=== PATIENT | female | born 1960 | race Caucasian/White ===

== ENCOUNTER 2016-08-20 11:16 | Outpatient (CLI) | payer OTHER | END 2016-08-20 11:17 | disposition home or self-care (01) | DX: M79.662 Pain in left lower leg (principal) ==

== ENCOUNTER 2017-03-21 08:00 | Outpatient (CLI) | payer OTHER ==
[2017-03-23 14:24] LABS: ANA SCREEN NEGATIVE (NEGATIVE)
== END 2017-03-21 08:01 | disposition home or self-care (01) ==
LOC: LAB.R 08:00
PROVIDERS: ATTEND Nurse Practitioner Primary Care
DX: M25.50 Pain in unspecified joint (principal); R53.83 Other fatigue; R22.1 Localized swelling, mass and lump, neck
CPT/HCPCS: 84443; 85651; 86038; 86140; 86200; 86430

== ENCOUNTER 2017-06-22 11:42 | Outpatient (CLI) | payer OTHER ==
[2017-06-22 14:11] LABS: BASOPHILS % (AUTO) 0.5 %; EOSINOPHILS % (AUTO) 0.4 %; LYMPHOCYTES # (AUTO) 1.4 10^3/uL (1.5-3.5); MEAN CORPUSCULAR HEMOGLOBIN 31.1 pg (27.0-31.0); MEAN CORPUSCULAR HGB CONC 34.2 g/dL (32.0-36.0); MEAN PLATELET VOLUME 9.2 fL (7.9-10.8); MONOCYTES # (AUTO) 0.3 10^3/uL (0.0-1.0); MONOCYTES % (AUTO) 3.8 %; NEUTROPHILS # (AUTO) 5.1 10^3/uL (1.5-6.6); NEUTROPHILS % (AUTO) 74.3 %; RED BLOOD COUNT 4.51 10^6/uL (4.20-5.40); RED CELL DISTRIBUTION WIDTH 12.9 % (12.0-15.0); UNCORRECTED WHITE BLOOD COUNT 6.8 x10^3/uL; WHITE BLOOD COUNT 6.8 x10^3/uL (4.8-10.8)
[2017-06-22 14:27] LABS: ALBUMIN/GLOBULIN RATIO 1.4 (1.0-2.2); BILIRUBIN,TOTAL 0.6 mg/dL (0.2-1.0); BUN - BLOOD UREA NITROGEN 21 mg/dL (6-20); CALCIUM 9.7 mg/dL (8.5-10.3); CARBON DIOXIDE - CO2 23 mmol/L (21-32); CHLORIDE 100 mmol/L (101-111); CHOL/HDL RATIO 2.8 (<4.4); CHOLESTEROL 209 mg/dL; CREATININE 0.7 mg/dL (0.4-1.0); GFR - MDRD 87 (>89); GLUCOSE 84 mg/dL (70-100); HDL CHOLESTEROL 74 mg/dL; LDL/HDL RATIO 1.5 (<4.4); POTASSIUM 3.8 mmol/L (3.5-5.0); SODIUM 135 mmol/L (135-145); TOTAL PROTEIN 7.4 g/dL (6.7-8.2); TRIGLYCERIDES 136 mg/dL; VLDL CHOLESTEROL 27 mg/dL
== END 2017-06-22 11:43 | disposition home or self-care (01) ==
LOC: LAB.R 11:42
PROVIDERS: ATTEND Physician Assistant Medical
DX: Z00.00 Encounter for general adult medical examination without abnormal findings (principal); E55.9 Vitamin D deficiency, unspecified; Z79.899 Other long term (current) drug therapy
CPT/HCPCS: 80053; 80061; 82306; 85025

== ENCOUNTER 2017-06-24 12:14 | Outpatient (CLI) | payer OTHER ==
[~2017-06-24 12:14] MED LIST: IOPAMIDOL-300 100 ML VIAL ONE
[2017-06-24] MEDS ORDERED: IOPAMIDOL-300 100 ML VIAL IVP ONE (13:09)
--- NOTE | 2017-06-24 14:10 | CT Report ---
CT OF NECK WITH CONTRAST: 06/24/2017 CLINICAL INDICATION: Neck swelling, pain. TECHNIQUE: Axial CT images of the neck were obtained with 100 mL of Isovue-300 intravenously. Sagitta l and coronal reconstructions were performed. FINDINGS: The vascular structures enhance normally. The tracheal air column is widely patent through out. The salivary glands and thyroid gland are unremarkable. There are small cervical lymph nodes pre sent, which do not reach size criteria for lymphadenopathy. No mucosal lesion is appreciated in the n asopharynx, oropharynx, or hypopharynx. The osseous structures demonstrate degenerative changes. Limi aileen evaluation of the lung apices is unremarkable. The visualized orbital contents and paranasal sinu ses are unremarkable. Specifically, no CT abnormality is appreciated in the right lateral neck and mckeon praclavicular region, in the region of swelling described on the requisition. IMPRESSION: NORMAL CT OF THE NECK WITH CONTRAST. NO EVIDENCE OF MASS, ABSCESS, OR ADENOPATHY. In accordance with CT protocol optimization, one or more of the following dose reduction techniques w ere utilized for this exam: automated exposure control, adjustment of mA and/or KV based on patient size, or use of iterative reconstructive technique. JOB #: [id number] EXT JOB #:
== END 2017-06-24 12:15 | disposition home or self-care (01) ==
LOC: DI 12:14
PROVIDERS: ATTEND Physician Assistant Medical
DX: M54.2 Cervicalgia (principal)
CPT/HCPCS: 70491; Q9967

== ENCOUNTER 2017-07-06 13:57 | Outpatient (CLI) | payer OTHER ==
--- NOTE | 2017-07-07 20:05 | Mammography Report ---
DIGITAL SCREENING MAMMOGRAM: 07/06/2017 CLINICAL INDICATION: A 57-year-old nulliparous patient for screening. COMPARISON: 01/2015, 01/2014, 09/2012, 09/2011, 09/2010. TECHNIQUE: Routine CC and MLO projections were obtained of the breasts. FINDINGS: Scattered fibroglandular tissue is present within the breasts. There are no dominant mass es, suspicious microcalcifications, or secondary signs of malignancy. In comparison to the previous studies, there are no significant changes. ASSESSMENT: NO MAMMOGRAPHIC EVIDENCE OF MALIGNANCY. NO SIGNIFICANT INTERVAL CHANGES. RECOMMENDATION: Screening mammography is recommended annually. BIRADS category 1 - negative. STANDARD QUALIFYING STATEMENTS 1. This examination was reviewed with the aid of Computed-Aided Detection (CAD). 2. A negative or benign imaging report should not delay biopsy if clinically suspicious findings are present. Consider surgical consultation if warranted. More than 5% of cancers are not identified b y imaging. 3. Dense breasts may obscure an underlying neoplasm. JOB #: [id number] EXT JOB #:[id number]
== END 2017-07-06 13:58 | disposition home or self-care (01) ==
LOC: DI 13:57
PROVIDERS: ATTEND Physician Assistant Medical
DX: Z12.31 Encounter for screening mammogram for malignant neoplasm of breast (principal)
CPT/HCPCS: 77067

== ENCOUNTER 2017-08-11 13:18 | Outpatient (CLI) | payer OTHER ==
--- NOTE | 2017-08-11 14:53 | MRI Report ---
EXAM: MRI BRAIN WITHOUT CONTRAST EXAM DATE: 08/11/2017 02:13 PM. CLINICAL HISTORY: NEW DAILY PERSISTENT HEADACHE (NDPH). COMPARISON: CT head 09/11/2014 TECHNIQUE: Multiplanar, multisequence T1-weighted and fluid-sensitive MR sequences of the brain were performed. Sequences optimized for routine evaluation. Other: None. IV Contrast: None. FINDINGS: Brain Volume: Normal for age. Parenchyma/Dura: No mass, acute infarct or hemorrhage. Few scattered T2/FLAIR hyperintense periventri cular and deep white matter lesions within cerebral hemispheres bilaterally. No parenchymal microhemo rrhages. Ventricles/Cisterns: No hydrocephalus. No abnormal extra-axial fluid collection or hemorrhage. Orbits: Symmetric and unremarkable. Sella Turcica: The pituitary gland, cavernous sinuses, suprasellar cistern and optic chiasm are unrem arkable. IAC: Symmetric and unremarkable. Vasculature: Normal signal flow void is seen in the major arterial structures at the skull base. Sinuses: No acute appearing sinus disease. Bones: No focal pathologic appearing marrow signal changes. Other: None. IMPRESSION: 1. No MRI evidence of acute intracranial abnormality. Specifically, no evidence of acute or subacute infarct, acute intracranial hemorrhage, mass, midline shift, or hydrocephalus. 2. Few scattered periventricular and deep white matter T2/FLAIR hyperintensities, nonspecific, and ca n be seen with the entire gamut of white matter conditions, including migraine headaches and as seque la of chronic microangiopathy. [facility] Referring Provider Line: [phone] SITE ID: [id number]
== END 2017-08-11 13:19 | disposition home or self-care (01) ==
LOC: DI 13:18
PROVIDERS: ATTEND Specialist
DX: G44.52 New daily persistent headache (NDPH) (principal)
CPT/HCPCS: 70551

== ENCOUNTER 2018-07-08 08:53 | Outpatient (CLI) | payer OTHER ==
[2018-07-08 09:33] LABS: BASOPHILS % (AUTO) 0.7 %; EOSINOPHILS # (AUTO) 0.1 10^3/uL (0.0-0.7); EOSINOPHILS % (AUTO) 1.1 %; HGB - HEMOGLOBIN 13.4 g/dL (12.0-16.0); LYMPHOCYTES # (AUTO) 2.1 10^3/uL (1.5-3.5); LYMPHOCYTES % (AUTO) 38.9 %; MEAN CORPUSCULAR HEMOGLOBIN 31.8 pg (27.0-31.0); MEAN CORPUSCULAR HGB CONC 34.6 g/dL (32.0-36.0); MEAN PLATELET VOLUME 8.9 fL (7.9-10.8); MONOCYTES # (AUTO) 0.4 10^3/uL (0.0-1.0); MONOCYTES % (AUTO) 8.1 %; NEUTROPHILS # (AUTO) 2.8 10^3/uL (1.5-6.6); NEUTROPHILS % (AUTO) 51.2 %; PLT - PLATELET COUNT 237 10^3/uL (130-450); RED BLOOD COUNT 4.23 10^6/uL (4.20-5.40); RED CELL DISTRIBUTION WIDTH 12.4 % (12.0-15.0); WHITE BLOOD COUNT 5.4 x10^3/uL (4.8-10.8)
[2018-07-08 09:41] LABS: ALBUMIN 3.9 g/dL (3.2-5.5); ALBUMIN/GLOBULIN RATIO 1.2 (1.0-2.2); ALKALINE PHOSPHATASE 50 IU/L (42-121); ALT ALANINE AMINOTRANSFERASE 16 IU/L (10-60); AST ASPARTATE AMINOTRANSFERASE 18 IU/L (10-42); BILIRUBIN,TOTAL 0.7 mg/dL (0.2-1.0); BUN - BLOOD UREA NITROGEN 17 mg/dL (6-20); CALCIUM 9.2 mg/dL (8.5-10.3); CARBON DIOXIDE - CO2 27 mmol/L (21-32); CHLORIDE 103 mmol/L (101-111); CHOL/HDL RATIO 3.4 (<4.4); CHOLESTEROL 240 mg/dL; CREATININE 0.8 mg/dL (0.4-1.0); GFR - MDRD 74 (>89); GLUCOSE 96 mg/dL (70-100); HDL CHOLESTEROL 71 mg/dL; LDL CHOLESTEROL,CALCULATED 140 mg/dL; SODIUM 138 mmol/L (135-145); TOTAL PROTEIN 7.2 g/dL (6.7-8.2); VLDL CHOLESTEROL 29 mg/dL
== END 2018-07-08 08:54 | disposition home or self-care (01) ==
LOC: LAB 08:53
PROVIDERS: ATTEND Physician Assistant Medical
DX: Z00.00 Encounter for general adult medical examination without abnormal findings (principal); E55.9 Vitamin D deficiency, unspecified; Z79.899 Other long term (current) drug therapy
CPT/HCPCS: 36415; 80053; 80061; 82306; 83721; 84443; 85025

== ENCOUNTER 2018-09-13 09:40 | Outpatient (CLI) | payer OTHER ==
--- NOTE | 2018-09-13 10:59 | Mammography Report ---
Reason: MAMMOGRAPHIC SCREENING FOR BREAST CANCER Procedure Date: 09/13/2018 Accession Number: [id number] / [id number] Procedure: [facility] - Screening Mammo w/Levon CPT Code: FULL RESULT: EXAM: Screening Mammo w/Levon DATE: 09/13/2018 10:31 AM CLINICAL HISTORY: Routine screening. No reported personal or family history of breast cancer. TECHNIQUE: Bilateral CC and MLO views were obtained. COMPARISON: 07/06/2017 through 09/26/2012 FINDINGS: The breasts demonstrate scattered fibroglandular densities bilaterally. Right breast: There are no suspicious masses, calcifications or areas of distortion. Left breast: The left CC view is technically limited due to insufficient inclusion of posterior tissues. IMPRESSION: Incomplete examination RECOMMENDATION: Technical recall left breast for posterior tissues CC view. BI-RADS CATEGORY 0: Incomplete examination STANDARD QUALIFYING STATEMENTS: 1. This examination was not reviewed with the aid of Computer-Aided Detection (CAD). 2. A negative or benign imaging report should not preclude biopsy if clinically suspicious findings are present. 3. Dense breasts may obscure an underlying neoplasm. 4. This examination was reviewed with the aid of 3D breast imaging (tomosynthesis).
== END 2018-09-13 09:41 | disposition home or self-care (01) ==
LOC: DI 09:40
PROVIDERS: ATTEND Physician Assistant Medical
DX: Z12.31 Encounter for screening mammogram for malignant neoplasm of breast (principal)
CPT/HCPCS: 77063; 77067

== ENCOUNTER 2018-10-17 09:05 | Outpatient (CLI) | payer OTHER | END 2018-10-17 09:06 | disposition home or self-care (01) | LOC: DI 09:05 | PROVIDERS: ATTEND Physician Assistant Medical | DX: Z53.9 Procedure and treatment not carried out, unspecified reason (principal) ==

== ENCOUNTER 2018-11-22 09:57 | Outpatient (CLI) | payer OTHER ==
--- NOTE | 2018-11-22 10:37 | XRAY Report ---
Reason: KNEE PAIN,LEFT Procedure Date: 11/22/2018 Accession Number: [id number] / [id number] Procedure: [facility] - Knee 2 View LT CPT Code: FULL RESULT: EXAM: LEFT FOOT RADIOGRAPHY EXAM DATE: 11/22/2018 10:22 AM. CLINICAL HISTORY: LEFT FOOT PAIN. COMPARISON: KNEE 3 VIEW LT 04/08/2015 11:02 AM. TECHNIQUE: 3 views. FINDINGS: Bones: No acute abnormality. There is a bipartite medial sesamoid of no clinical significance. Partial visualization of the distal portion of tibial fixation hardware Joints: No soft tissue swelling. Soft Tissues: Normal. IMPRESSION: Normal left foot radiography. [facility]
== END 2018-11-22 09:58 | disposition home or self-care (01) ==
LOC: DI.WCP 09:57
PROVIDERS: ATTEND Physician Assistant
DX: M79.675 Pain in left toe(s) (principal)

== ENCOUNTER 2018-11-22 10:01 | Outpatient (CLI) | payer OTHER ==
--- NOTE | 2018-11-22 10:31 | XRAY Report ---
Reason: TOE PAIN,LEFT Procedure Date: 11/22/2018 Accession Number: [id number] / [id number] Procedure: [facility] - Foot 3 View LT CPT Code: FULL RESULT: EXAM: LEFT FOOT RADIOGRAPHY EXAM DATE: 11/22/2018 10:04 AM. CLINICAL HISTORY: TOE Pain, left. COMPARISON: None. TECHNIQUE: 3 views. FINDINGS: Bones: No acute abnormality. Minimal patellofemoral osteoarthritis. Partial visualization of proximal left tibial hardware. Joints: Normal. No subluxations. Soft Tissues: Normal. No soft tissue swelling. IMPRESSION: 1. Minimal patellofemoral osteoarthritis without joint effusion. 2. Otherwise negative examination. No acute osseous abnormality. [facility] ADDENDUM: 11/29/18 09:51 This addendum is to reflect a clerical mismatch between the reporting PACS archive and the permanent PACS archive as maintained at [facility]. At [facility], images corresponding to this report are maintained in PACS under accession #[id number] / [id number]. ADDENDUM: 12/05/18 14:03 EXAM: LEFT FOOT RADIOGRAPHY EXAM DATE: 11/22/2018 10:22 AM. CLINICAL HISTORY: LEFT FOOT PAIN. COMPARISON: KNEE 3 VIEW LT 04/08/2015 11:02 AM. TECHNIQUE: 3 views. FINDINGS: Bones: No acute abnormality. There is a bipartite medial sesamoid of no clinical significance. Partial visualization of the distal portion of tibial fixation hardware Joints: No soft tissue swelling. Soft Tissues: Normal. IMPRESSION: Normal left foot radiography. [facility]
== END 2018-11-22 10:02 | disposition home or self-care (01) ==
LOC: DI.WCP 10:01
PROVIDERS: ATTEND Physician Assistant
DX: M79.675 Pain in left toe(s) (principal); M17.12 Unilateral primary osteoarthritis, left knee; M25.462 Effusion, left knee

== ENCOUNTER 2019-08-18 08:26 | Emergency (ER) | payer OTHER ==
[2019-08-18] MEDS ORDERED: KETOROLAC 30 MG/ML VIAL IVP STA (09:27)
[2019-08-18] MEDS ORDERED: SODIUM CHLORIDE 0.9% 1,000 ML IV ONE (09:27)
[2019-08-18] MEDS ORDERED: DEXAMETHASONE 10 MG/ML VIAL IVP STA (09:28)
--- NOTE | 2019-08-18 09:31 | ED Physician Documentation ---
PD HPI ABD PAIN - Stated complaint Stated Complaint: COLEMAN/ABD PX - Chief complaint Chief Complaint: Abd Pain - History obtained from History obtained from: Patient, Family - History of Present Illness Timing - onset: How many months ago (1) Timing - duration: Months (1) Timing - details: Gradual onset, Still present, Waxing and waning Quality: Sharp, Pain Location: LLQ Radiation: Lower back Improved by: Laying still Worsened by: Position, Palpation Associated symptoms: Constipation, Other (headache). 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 She has persistence of this pain now. She has some issues with constipation chronically she does not feel that she has had any fever or vomiting with this she is not having any urinary symptoms with this. She has not had an investigation of this. She does have some pain in her neck at the base of the neck and a headache associated with this. She is under significant stress as the couple has recently bought a house her has undergone CABG and the patient has a mother with issues as well. Review of Systems Constitutional: denies: Fever, Chills, Myalgias Eyes: denies: Decreased vision Ears: denies: Ear pain Nose: denies: Rhinorrhea / runny nose, Congestion Throat: denies: Sore throat Cardiac: denies: Chest pain / pressure, Palpitations Respiratory: denies: Dyspnea GI: reports: Abdominal Pain, Constipation. denies: Abdominal Swelling, Nausea, Vomiting : denies: Dysuria, Frequency Skin: denies: Abrasion (s) Musculoskeletal: reports: Neck pain. denies: Back pain Neurologic: reports: Headache. 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 - Present Medications Home Medications: Ambulatory Orders Medication Instructions Recorded Confirmed Estrogens, Conjugated [Premarin] 0.625 mg PO DAILY 07/18/13 09/14/14 hydroCHLOROthiazide [Hydrodiuril] 25 mg PO DAILY 07/18/13 09/14/14 Cyclobenzaprine [Flexeril] 10 mg PO TID PRN #20 tablet 08/18/19 Gabapentin 300 mg PO 08/18/19 Hydrocodone/Acetaminophen 1 - 2 each PO Q6H PRN #14 tablet 08/18/19 [Hydrocodon-Acetaminophen 5-325] Multivitamin [Multivitamins] 1 each PO 08/18/19 - Allergies Allergies/Adverse Reactions: Allergies Allergy/AdvReac Type Severity Reaction Status Date / Time No Known Drug Allergies Allergy Verified 08/18/19 08:36 - Social History Does the pt smoke?: No Smoking Status: Never smoker Does the pt drink ETOH?: Yes Does the pt have substance abuse?: No - Immunizations Immunizations are current?: Yes PD ED PE NORMAL - Vitals Vital signs reviewed: Yes (Hypertensive.) - General General: Alert and oriented X 3, Well developed/nourished, Other (Consumer Advocate tone and flattened affect consistent with pain.) - HEENT HEENT: Atraumatic, PERRL, EOMI, Ears normal, Moist mucous membranes, Pharynx benign, Dentition benign - Neck Neck: Supple, no meningeal sign, No bony TTP, Other (There is tenderness along the trapezius at the insertion to the occiput bilaterally worse on the right than the left.) - Cardiac Cardiac: RRR, No murmur - Respiratory Respiratory: No respiratory distress, Clear bilaterally - Abdomen Abdomen: Soft, Other (Mild left lower quadrant tenderness without guarding or rebound tenderness.) - Back Back: No CVA TTP, No spinal TTP - Derm Derm: Normal color, Warm and dry, No rash - Extremities Extremities: No deformity, Normal ROM s pain, No edema, No calf tenderness / cord - Neuro Neuro: Alert and oriented X 3, manager environmental affairs 2-12 intact, No motor deficit, No sensory deficit, Normal speech Eye Opening: Spontaneous Motor: Obeys Commands Verbal: Oriented GCS Score: 15 - Psych Psych: Normal mood Results - Vitals Vitals: Vital Signs - 24 hr 08/18/19 08/18/19 08/18/19 08:32 10:34 11:12 Temperature 36.4 C L Heart Rate 63 58 L 63 Respiratory 16 18 18 Rate Blood Pressure 153/95 H 123/65 129/83 H O2 Saturation 98 94 99 08/18/19 12:18 Temperature Heart Rate 52 L Respiratory 18 Rate Blood Pressure 147/87 H O2 Saturation 95 Oxygen O2 Source Room air - Labs Labs: Laboratory Tests 08/18/19 08/18/19 08/18/19 08:55 09:46 09:46 WBC 4.8 RBC 4.04 L Hgb 12.5 Hct 38.2 MCV 94.6 MCH 30.9 MCHC 32.7 RDW 12.4 Plt Count 240 MPV 10.9 H Neut # (Auto) 3.0 Lymph # (Auto) 1.3 L Swift # (Auto) 0.4 Eos # (Auto) 0.0 Baso # (Auto) 0.0 Absolute Nucleated RBC 0.00 Nucleated RBC % 0.0 Sodium 137 Potassium 3.1 L Chloride 102 Carbon Dioxide 25 Anion Gap 10.0 BUN 17 Creatinine 0.6 Estimated GFR (MDRD) 103 Glucose 90 Calcium 8.9 Total Bilirubin 0.9 AST 18 ALT 16 Alkaline Phosphatase 41 L Total Protein 6.7 Albumin 3.8 Globulin 2.9 Albumin/Globulin Ratio 1.3 Lipase 22 Urine Color YELLOW Urine Clarity CLEAR Urine pH 7.5 Ur Specific [place] 1.015 Urine Protein NEGATIVE Urine Glucose (UA) NEGATIVE Urine Ketones NEGATIVE Urine Occult Blood NEGATIVE Urine Nitrite NEGATIVE Urine Bilirubin NEGATIVE Urine Urobilinogen 0.2 (NORMAL) Ur Leukocyte Esterase NEGATIVE Ur Microscopic Review NOT INDICATED Urine Culture Comments NOT INDICATED - Rads (name of study) CT ab/pel w Radiology: Prelim report reviewed (Impression: 1. No convincing acute abdominal pelvic findings. 2 Other findings as noted above.), EMP read indepedently, See rad report Procedures - IVC sono (time) 0695 Bedside IVC sono: IVC measures (cm) (0.99), IVC collapsed c insp (cm) (complete), Dehydration (est 1+ liter deficit.) PD MEDICAL DECISION MAKING - ED course Complexity details: reviewed old records, reviewed results, re-evaluated patient, considered differential, d/w patient, d/w family ED course: 59-year-old female with left lower quadrant abdominal pain and a headache that appears to be related to greater occipital neuritis with a lot of spasm in the neck muscle is found to be dehydrated on interrogation of the IVC (does not drink much fluids and is on HCTZ). Here in the emergency department we elected to treat the headache with Toradol and dexamethasone as well as saline. The left lower quadrant abdominal pain is investigated with CT scan of the abdomen pelvis with contrast. This is a mostly normal study with the exception of a fair stool burden, and this is shared with the patient. Her headache is improved with IV dilaudid and zofran. Departure - Departure Disposition: 01 Home, Self Care Clinical Impression: Tension headache, Dehydration Constipation Qualifiers: Constipation type: unspecified constipation type Qualified Code(s): K59.00 - Constipation, unspecified Condition: Stable Instructions: ED Constipation, ED Dehydration, ED Headache Tension Follow-Up: Jennifer Zuñiga PA [Primary Care Provider] - Prescriptions: Cyclobenzaprine [Flexeril] 10 mg PO TID PRN #20 tablet PRN Reason: Spasms Hydrocodone/Acetaminophen [Hydrocodon-Acetaminophen 5-325] 1 - 2 each PO Q6H PRN #14 tablet PRN Reason: pain
[2019-08-18] MEDS ORDERED: IOVERSOL 320 100 ML VIAL IVP ONE ×2 (09:41→11:02)
[2019-08-18 09:46] LABS: BILIRUBIN,URINE NEGATIVE (NEGATIVE); GLUCOSE, URINE (UA) NEGATIVE (NEGATIVE); KETONES,URINE (UA) NEGATIVE (NEGATIVE); LEUKOCYTE ESTERASE, URINE NEGATIVE (NEGATIVE); NITRITE,URINE NEGATIVE (NEGATIVE); OCCULT BLOOD,URINE NEGATIVE (NEGATIVE); PH,URINE 7.5 PH (5.0-7.5); PROTEIN,URINE NEGATIVE (NEGATIVE); UROBILINOGEN,URINE 0.2 (NORMAL) E.U./dL (NORMAL)
[2019-08-18 09:56] LABS: CLARITY,URINE CLEAR (CLEAR)
[2019-08-18 10:23] LABS: BASOPHILS % (AUTO) 0.6 %; EOSINOPHILS % (AUTO) 0.6 %; HGB - HEMOGLOBIN 12.5 g/dL (12.0-16.0); LYMPHOCYTES # (AUTO) 1.3 10^3/uL (1.5-3.5); LYMPHOCYTES % (AUTO) 28.1 %; MEAN CORPUSCULAR HEMOGLOBIN 30.9 pg (27.0-31.0); MEAN CORPUSCULAR HGB CONC 32.7 g/dL (32.0-36.0); MEAN CORPUSCULAR VOLUME 94.6 fL (81.0-99.0); MEAN PLATELET VOLUME 10.9 fL (7.9-10.8); MONOCYTES # (AUTO) 0.4 10^3/uL (0.0-1.0); MONOCYTES % (AUTO) 7.5 %; PLT - PLATELET COUNT 240 10^3/uL (130-450); RED BLOOD COUNT 4.04 10^6/uL (4.20-5.40); RED CELL DISTRIBUTION WIDTH 12.4 % (12.0-15.0); WHITE BLOOD COUNT 4.8 x10^3/uL (4.8-10.8)
[2019-08-18 10:36] LABS: ALBUMIN 3.8 g/dL (3.2-5.5); ALBUMIN/GLOBULIN RATIO 1.3 (1.0-2.2); BILIRUBIN,TOTAL 0.9 mg/dL (0.2-1.0); CALCIUM 8.9 mg/dL (8.5-10.3); CREATININE 0.6 mg/dL (0.4-1.0); TOTAL PROTEIN 6.7 g/dL (6.7-8.2)
[2019-08-18] MEDS ORDERED: ONDANSETRON 4 MG/2 ML VIAL IVP STA (10:38)
[2019-08-18] MEDS ORDERED: HYDROmorphone 1 MG/ML CARPUJECT IVP STA (10:38)
--- NOTE | 2019-08-18 11:32 | CT Report ---
Reason: LLQ pain Procedure Date: 08/18/2019 Accession Number: [id number] / [id number] Procedure: CT - Abdomen/Pelvis W CPT Code: Final Report FULL RESULT: EXAM: CT ABDOMEN AND PELVIS EXAM DATE: 08/18/2019 11:01 AM. CLINICAL HISTORY: LLQ pain. COMPARISONS: None. TECHNIQUE: Routine helical CT imaging was performed through the abdomen and pelvis. IV contrast: OPTI 320 90ML. Enteric contrast: No. Reconstructions: Coronal and sagittal. In accordance with CT protocol optimization, one or more of the following dose reduction techniques were utilized for this exam: automated exposure control, adjustment of mA and/or KV based on patient size, or use of iterative reconstructive technique. FINDINGS: Lung Bases: Unremarkable. Liver: Probable 24 mm segment 4 cyst (10/16). Otherwise unremarkable. Gallbladder/Bile Ducts: Unremarkable. Spleen: Normal. Pancreas: Nonspecific small calcification in the pancreatic head. No mass or ductal enlargement. Adrenal Glands: Normal. Kidneys: Normal. No masses or hydronephrosis. Peritoneal Cavity/Bowel: No free air or free fluid. Few sigmoid diverticula. No mass or acute inflammatory process. No obstruction. The appendix is well visualized and normal. Pelvic Organs: Uterus absent. Ovaries are not identified and may be absent. Urinary bladder unremarkable. Vasculature: No aneurysms or other significant abnormality. Bones: No significant abnormality. Other: None. IMPRESSION: 1. No convincing acute abdominopelvic findings. 2. Other findings as noted above. [facility]
[2019-08-18 12:19] VITALS: BP 147/87
== END 2019-08-18 12:46 | disposition home or self-care (01) ==
LOC: ED 08:26
DX: G44.209 Tension-type headache, unspecified, not intractable (principal); E86.0 Dehydration; K59.00 Constipation, unspecified; M54.2 Cervicalgia; I10 Essential (primary) hypertension
CPT/HCPCS: 36415; 74177; 80053; 81003; 83690; 85025; 96361; 96374; 96375; 99284; 99285; J1170; Q9967; 81001; 87086

== ENCOUNTER 2019-09-13 08:13 | Outpatient (CLI) | payer OTHER ==
--- NOTE | 2019-09-13 10:12 | Mammography Report ---
Reason: SCREENING MAMMO Procedure Date: 09/13/2019 Accession Number: [id number] / [id number] Procedure: [facility] - Screening Mammo w/Levon CPT Code: Final Report FULL RESULT: EXAM: Screening Mammo w/Levon DATE: 09/13/2019 8:54 AM CLINICAL HISTORY: Nulliparous patient for routine screening. TECHNIQUE: (B) - Bilateral CC and MLO views were obtained. COMPARISON: 10/17/2018, 09/13/2018, 07/06/2017, 01/23/2015, 09/26/2012, 09/13/2011, 09/08/2010, and 08/05/2009. PARENCHYMAL PATTERN: (A) - The breasts demonstrate scattered fibroglandular densities bilaterally. FINDINGS: Right breast: No significant interval change. There are no suspicious masses, calcifications, or areas of distortion. Left breast: Possible developing nodule superior left breast 5 cm from the nipple best appreciated on the MLO projection 3-D image 32 and possibly seen on 3-D CC image 32. No suspicious microcalcifications, skin thickening or other finding. IMPRESSION: Incomplete examination. BI-RADS category 0. Needs spot compression and true lateral views left breast. Possible ultrasound. Negative right breast. RECOMMENDATION: ([facility]) - Additional views using both Mammography and Ultrasound recommended. Left breast BI-RADS CATEGORY: (0) - Incomplete Examination - need additional evaluation. STANDARD QUALIFYING STATEMENTS: 1. This examination was not reviewed with the aid of Computer-Aided Detection (CAD). 2. A negative or benign imaging report should not preclude biopsy if clinically suspicious findings are present. 3. Dense breasts may obscure an underlying neoplasm. 4. This examination was reviewed with the aid of 3D breast imaging (tomosynthesis).
== END 2019-09-13 08:14 | disposition home or self-care (01) ==
LOC: DI 08:13
DX: Z12.31 Encounter for screening mammogram for malignant neoplasm of breast (principal)
CPT/HCPCS: 77063; 77067

== ENCOUNTER 2019-10-15 09:53 | Outpatient (CLI) | payer OTHER ==
--- NOTE | 2019-10-15 13:17 | Mammography Report ---
Reason: ABNORMAL MAMMOGRAM Procedure Date: 10/15/2019 Accession Number: [id number] / [id number] Procedure: [facility] - Diag Special Views Dig LT CPT Code: Final Report FULL RESULT: EXAM: Diag Special Views Dig LT, Breast Unilateral Limited DATE: 10/15/2019 10:47 AM CLINICAL HISTORY: Diagnostic examination. Patient is recalled from screening mammography for left breast possible nodule. TECHNIQUE: (L) - Left left spot CC, left spot MLO, left ML images are obtained. Focused left breast ultrasound is performed. COMPARISON: 09/13/2019 through 09/08/2010. PARENCHYMAL PATTERN: (A) - The breast(s) demonstrate(s) scattered fibroglandular densities. FINDINGS: Previously questioned left breast nodule persists as a focal asymmetry in the left central retroareolar breast cone 6 cm from the nipple as seen on MLO image 29 and spot views. Focused left breast ultrasound of the same region is performed which reveals normal breast tissue with no discernible mass or architectural distortion. These findings are probably benign nodular breast tissue which has become more prominent with decreasing breast density. There are no suspicious masses, calcifications, or areas of distortion. IMPRESSION: Probably Benign. BI-RADS category 3. RECOMMENDATION: (6MOS) - Recommend 6 month follow-up exam. Left breast mammogram. BI-RADS CATEGORY: (3) - Probably Benign. STANDARD QUALIFYING STATEMENTS: 1. This examination was not reviewed with the aid of Computer-Aided Detection (CAD). 2. A negative or benign imaging report should not preclude biopsy if clinically suspicious findings are present. 3. Dense breasts may obscure an underlying neoplasm. 4. This examination was reviewed with the aid of 3D breast imaging (tomosynthesis).
== END 2019-10-15 09:54 | disposition home or self-care (01) ==
LOC: DI 09:53
PROVIDERS: ATTEND Physician Assistant
DX: R92.8 Other abnormal and inconclusive findings on diagnostic imaging of breast (principal)
CPT/HCPCS: 76642

== ENCOUNTER 2019-12-14 15:10 | Outpatient (CLI) | payer OTHER ==
--- NOTE | 2019-12-16 02:44 | XRAY Report ---
Reason: LEFT FOOT PAIN Procedure Date: 12/14/2019 Accession Number: [id number] / [id number] Procedure: [facility] - Foot 3 View LT CPT Code: Final Report FULL RESULT: EXAM: LEFT FOOT RADIOGRAPHY EXAM DATE: 12/14/2019 03:10 PM. CLINICAL HISTORY: LEFT FOOT PAIN. COMPARISON: KNEE 2 VIEW LT 11/22/2018 10:09 AM. TECHNIQUE: 3 views. FINDINGS: Bones: Intact. No fractures or bone lesions. Partial visualization of fixation hardware in the distal tibia. Joints: Normal. No subluxations. Soft Tissues: Normal. No soft tissue swelling. IMPRESSION: Normal foot radiography. [facility]
== END 2019-12-14 15:11 | disposition home or self-care (01) ==
LOC: DI.WCP 15:10
PROVIDERS: ATTEND Family Medicine
DX: M77.42 Metatarsalgia, left foot (principal)

== ENCOUNTER 2020-03-07 08:00 | Outpatient (CLI) | payer OTHER ==
[2020-03-07 12:45] LABS: BASOPHILS % (AUTO) 0.8 %; EOSINOPHILS # (AUTO) 0.1 10^3/uL (0.0-0.7); HGB - HEMOGLOBIN 14.2 g/dL (12.0-16.0); LYMPHOCYTES # (AUTO) 1.9 10^3/uL (1.5-3.5); LYMPHOCYTES % (AUTO) 38.1 %; MEAN CORPUSCULAR HEMOGLOBIN 30.9 pg (27.0-31.0); MEAN CORPUSCULAR HGB CONC 32.7 g/dL (32.0-36.0); MEAN CORPUSCULAR VOLUME 94.6 fL (81.0-99.0); MEAN PLATELET VOLUME 10.7 fL (7.9-10.8); MONOCYTES # (AUTO) 0.4 10^3/uL (0.0-1.0); MONOCYTES % (AUTO) 7.9 %; NEUTROPHILS # (AUTO) 2.5 10^3/uL (1.5-6.6); PLT - PLATELET COUNT 248 10^3/uL (130-450); RED BLOOD COUNT 4.59 10^6/uL (4.20-5.40); WHITE BLOOD COUNT 4.9 x10^3/uL (4.8-10.8)
[2020-03-07 14:10] LABS: ALBUMIN 4.3 g/dL (3.2-5.5); ALBUMIN/GLOBULIN RATIO 1.4 (1.0-2.2); ALKALINE PHOSPHATASE 46 IU/L (42-121); ALT ALANINE AMINOTRANSFERASE 19 IU/L (10-60); AST ASPARTATE AMINOTRANSFERASE 19 IU/L (10-42); BILIRUBIN,TOTAL 0.7 mg/dL (0.2-1.0); BUN - BLOOD UREA NITROGEN 16 mg/dL (6-20); CALCIUM 9.7 mg/dL (8.5-10.3); CARBON DIOXIDE - CO2 26 mmol/L (21-32); CHLORIDE 102 mmol/L (101-111); CHOL/HDL RATIO 2.6 (<4.4); CHOLESTEROL 221 mg/dL; CREATININE 0.8 mg/dL (0.4-1.0); GLUCOSE 90 mg/dL (70-100); HDL CHOLESTEROL 84 mg/dL; LDL CHOLESTEROL,CALCULATED 114 mg/dL; LDL/HDL RATIO 1.4 (<4.4); SODIUM 138 mmol/L (135-145); TOTAL PROTEIN 7.3 g/dL (6.7-8.2); VLDL CHOLESTEROL 23 mg/dL
== END 2020-03-07 23:59 | disposition home or self-care (01) ==
LOC: LAB.WCP 08:00
PROVIDERS: ATTEND Nurse Practitioner Family
DX: Z00.00 Encounter for general adult medical examination without abnormal findings (principal)
CPT/HCPCS: 36415; 80053; 80061; 83721; 84443; 85025

== ENCOUNTER 2020-05-14 08:45 | Outpatient (CLI) | payer OTHER ==
--- NOTE | 2020-05-15 14:12 | Mammography Report ---
UNILATERAL LEFT DIGITAL DIAGNOSTIC MAMMOGRAM 3D/2D: 05/14/2020 CLINICAL: Patient returns today to evaluate a focal asymmetry in the left breast. Comparison is made to exams dated: 10/15/2019 mammogram, 10/15/2019 ultrasound, 09/13/2019 mammogram, 2018 mammogram, 07/06/2017 mammogram, and 01/23/2015 mammogram - [facility]. There are scattered fibroglandular elements in left breast. There is a stable irregular asymmetry with an indistinct margin in the left breast middle depth super ior region seen on the mediolateral oblique view only 5.2 cm from the nipple. No other significant masses or calcifications are seen in the breast. IMPRESSION: PROBABLY BENIGN Asymmetry in the left breast is unchanged from comparison studies and is probably benign. An additio nal 6 month follow-up is recommended, to coincide with screening mammography of the right breast. This exam was interpreted at Station ID: [id number]. NOTE: For mammograms, a report in lay terms will be sent to the patient. Approximately 15% of breast malignancies will not be visualized mammographically. In the management of a palpable breast mass, a negative mammogram must not discourage biopsy of a clinically suspicious lesion. Electronically Signed By: Bandar Peters M.D. jr/:05/14/2020 09:32:29 ACR BI-RADS Category 3: Probably benign [id number] PARENCHYMAL PATTERN: (A) - The breast(s) demonstrate(s) scattered fibroglandular densities. BI-RADS CATEGORY: (3) - 3 Mammogram [id number] 6 month follow-up LATERALITY: (B)
== END 2020-05-14 08:46 | disposition home or self-care (01) ==
LOC: DI 08:45
PROVIDERS: ATTEND Physician Assistant
DX: R92.8 Other abnormal and inconclusive findings on diagnostic imaging of breast (principal)

== ENCOUNTER 2020-06-12 10:35 | Outpatient (CLI) | payer OTHER ==
--- NOTE | 2020-06-12 10:57 | XRAY Report ---
PROCEDURE: Elbow 3 View RT INDICATIONS: RIGHT MEDIAL EPICONDYLITIS TECHNIQUE: 3 views of the elbow were acquired. COMPARISON: None FINDINGS: Bones: No fractures or dislocations. No suspicious bony lesions. Soft tissues: No elbow joint effusion. No suspicious soft tissue calcifications. IMPRESSION: No evidence acute bony abnormality of the right elbow. Reviewed by: Stanley Thomas MD on 06/12/2020 10:56 AM [facility] Approved by: Stanley Thomas MD on 06/12/2020 10:56 AM [facility] Station ID: [id number]
== END 2020-06-12 23:59 ==
LOC: DI.WCP 10:35
PROVIDERS: ATTEND Orthopaedic Surgery
DX: M77.01 Medial epicondylitis, right elbow (principal)

== ENCOUNTER 2021-05-04 11:17 | Outpatient (CLI) | payer OTHER ==
--- NOTE | 2021-05-04 14:48 | XRAY Report ---
PROCEDURE: Shoulder 3 View RT INDICATIONS: STRAIN OF MUSCLE, FASCIA, AND TENDON OF R SHOULDER TECHNIQUE: 3 views of the shoulder were acquired. COMPARISON: None. FINDINGS: Possible small Hill-Sachs fracture deformity. Elsewhere, no acute fracture. Mild AC joint degeneratio n. Glenohumeral joint space appears grossly preserved. Slight lateral downsloping appearance of the a cromion. Soft tissues: No suspicious soft tissue calcifications. IMPRESSION: Possible small Hill-Sachs fracture deformity which is technically age indeterminate. If the patient's pain or other symptoms persist, consider further evaluation with MRI. Reviewed by: Gómez Gomez MD on 05/04/2021 2:47 PM PDT Approved by: Gómez Gomez MD on 05/04/2021 2:47 PM PDT Station ID: [id number]
== END 2021-05-04 23:59 | disposition home or self-care (01) ==
LOC: DI.N 11:17
PROVIDERS: ATTEND Physician Assistant Medical
DX: S46.911A Strain of unspecified muscle, fascia and tendon at shoulder and upper arm level, right arm, initial encounter (principal); M19.011 Primary osteoarthritis, right shoulder

== ENCOUNTER 2021-12-20 08:51 | Outpatient (CLI) | payer OTHER ==
--- NOTE | 2021-12-20 09:40 | XRAY Report ---
PROCEDURE: Knee 2 View RT INDICATIONS: R KNEE PAIN TECHNIQUE: 2 views of the right knee(s) were acquired. COMPARISON: None. FINDINGS: Bones: No fractures or dislocations. Small compartmental osteophytes. No suspicious bony lesions. Soft tissues: No joint effusion. No suspicious soft tissue calcifications. Chondrocalcinosis. IMPRESSION: Mild to moderate degenerative change. Chondrocalcinosis. Reviewed by: Javi Hassan MD on 12/20/2021 9:39 AM PDT Approved by: Javi Hassan MD on 12/20/2021 9:39 AM PDT Station ID: [id number]
== END 2021-12-20 08:52 | disposition home or self-care (01) ==
LOC: DI 08:51
PROVIDERS: ATTEND Internal Medicine
DX: M17.11 Unilateral primary osteoarthritis, right knee (principal)

== ENCOUNTER 2022-06-10 11:05 | Outpatient (CLI) | payer OTHER ==
--- NOTE | 2022-06-11 15:18 | Mammography Report ---
BILATERAL DIGITAL SCREENING MAMMOGRAM 3D/2D: 06/10/2022 CLINICAL: Routine screening. Comparison is made to exams dated: 01/09/2021 mammogram - [facility], 05/14/2020 mammogram, 10/15/2019 mammogram, 09/13/2019 mammogram, 09/13/2018 mammogram, and 07/06/2017 mammogram - [facility]. There are scattered areas of fibroglandular density in both breasts (category b / 25%-50% glandular t issue). No significant masses, calcifications, or other findings are seen in either breast. There has been no significant interval change. IMPRESSION: NEGATIVE There is no mammographic evidence of malignancy. A 1 year screening mammogram is recommended. Based on the Tyrer Cuzick model (a risk assessment model) the patients lifetime risk is 6.5% and her 10 year risk is 2.5%. According to the ACR, ACS, and NCCN guidelines, an annual breast MRI exam rafa g with mammogram is recommended if the patients lifetime risk is 20% or greater. This exam was interpreted at Station ID: [id number]. NOTE: For mammograms, a report in lay terms will be sent to the patient. Approximately 15% of breast malignancies will not be visualized mammographically. In the management of a palpable breast mass, a negative mammogram must not discourage biopsy of a clinically suspicious lesion. Electronically Signed By: [place] green/penrad:06/10/2022 16:40:57 ACR BI-RADS Category 1: Negative 3341F PARENCHYMAL PATTERN: (A) - The breast(s) demonstrate(s) scattered fibroglandular densities. BI-RADS CATEGORY: (1) - 1 RECOMMENDATION: (ANNUAL) - Recommend routine annual screening mammography. [id number] 1 year screening LATERALITY: (B)
== END 2022-06-10 11:06 | disposition home or self-care (01) ==
LOC: DI 11:05
PROVIDERS: ATTEND Physician Assistant
DX: Z12.31 Encounter for screening mammogram for malignant neoplasm of breast (principal)

== ENCOUNTER 2023-06-09 08:00 | Outpatient (CLI) | payer OTHER ==
[2023-06-09 20:52] LABS: BASOPHILS % (AUTO) 0.7 %; EOSINOPHILS # (AUTO) 0.1 10^3/uL (0.0-0.7); EOSINOPHILS % (AUTO) 1.7 %; LYMPHOCYTES # (AUTO) 2.2 10^3/uL (1.5-3.5); LYMPHOCYTES % (AUTO) 36.8 %; MEAN CORPUSCULAR HEMOGLOBIN 30.8 pg (27.0-31.0); MEAN CORPUSCULAR HGB CONC 32.6 g/dL (32.0-36.0); MEAN CORPUSCULAR VOLUME 94.5 fL (81.0-99.0); MEAN PLATELET VOLUME 11.3 fL (7.9-10.8); MONOCYTES # (AUTO) 0.5 10^3/uL (0.0-1.0); MONOCYTES % (AUTO) 8.7 %; NEUTROPHILS # (AUTO) 3.1 10^3/uL (1.5-6.6); NEUTROPHILS % (AUTO) 51.9 %; PLT - PLATELET COUNT 258 10^3/uL (130-450); RED BLOOD COUNT 4.55 10^6/uL (4.20-5.40); RED CELL DISTRIBUTION WIDTH 11.9 % (12.0-15.0); WHITE BLOOD COUNT 5.9 x10^3/uL (4.8-10.8)
[2023-06-09 21:11] LABS: ALBUMIN 4.5 g/dL (3.2-5.5); ALBUMIN/GLOBULIN RATIO 1.7 (1.0-2.2); BILIRUBIN,TOTAL 0.4 mg/dL (0.2-1.0); CALCIUM 9.7 mg/dL (8.5-10.3); CREATININE 0.7 mg/dL (0.6-1.3); POTASSIUM 3.8 mmol/L (3.5-4.5); TOTAL PROTEIN 7.2 g/dL (6.4-8.9)
== END 2023-06-09 23:59 | disposition home or self-care (01) ==
LOC: LAB.N 08:00
PROVIDERS: ATTEND Physician Assistant Medical
DX: R10.9 Unspecified abdominal pain (principal)
CPT/HCPCS: 36415; 80053; 82150; 83690; 85025

== ENCOUNTER 2023-06-13 08:00 | Outpatient (CLI) | payer OTHER ==
[2023-06-13 18:21] LABS: H. PYLORIS ANTIGEN STL NEGATIVE (Negative)
== END 2023-06-13 23:59 | disposition home or self-care (01) ==
LOC: LAB.N 08:00
PROVIDERS: ATTEND Physician Assistant Medical
DX: R10.9 Unspecified abdominal pain (principal)
CPT/HCPCS: 87338